=== PATIENT | male | born 1960 | race Caucasian/White ===

== ENCOUNTER → 2016-11-08 | Outpatient (CLI) | payer OTHER ==
--- NOTE | ~2016-11-08 | ENPV ---
Vascular Lower Extremities DVT Study Procedure Demographics Patient Name ETHAN CHEN Date of Study 11/08/2016 Patient Number [id number] Gender Male Date of 1960 Age 55 Visit Number [id number] Height Accession Number [id number] Weight Room Number BSA BMI Referring Jimi Sandoval MD Interpreting Nikita Knight MD Physician Nikita Knight MD Physician Physician Ordering Physician Kolton Mckeon MD Water Well Driller Jan Rodgers RVT Conclusions Summary Evidence of DVT in the left peroneal veins. No evidence of DVT proximal to calf veins. Procedure Type of Study: Veins:Lower Extremities DVT Study, Lower Extremity Left. Indications for Study:Swelling of Limb. Appropriate Use Criteria:9 Patient Status:Routine. Study Location:Vascular Lab. Technical Quality:Adequate visualization. Velocities are measured in cm/s ; Diameters are measured in cm Right Lower Extremities DVT Study Measurements Right 2D and Doppler Measurements + + + + +------+------+ + !Location !Visualized!Compressibility!Thrombosis!Signal!Reflux!Reflux ! ! ! ! ! ! ! !(sec) ! + + + + +------+------+ + !Common !Yes !Yes !None ! ! ! ! !Femoral ! ! ! ! ! ! ! + + + + +------+------+ + Left Lower Extremities DVT Study Measurements Left 2D and Doppler Measurements + + + + +------+------+ + !Location !Visualized!Compressibility!Thrombosis!Signal!Reflux!Reflux ! ! ! ! ! ! ! !(sec) ! + + + + +------+------+ + !GSV Thigh !Yes !Yes !None ! ! ! ! + + + + +------+------+ + !Common !Yes !Yes !None ! ! ! ! !Femoral ! ! ! ! ! ! ! + + + + +------+------+ + !Prox !Yes !Yes !None ! ! ! ! !Femoral ! ! ! ! ! ! ! + + + + +------+------+ + !Mid Femoral!Yes ! ! ! ! ! ! + + + + +------+------+ + !Dist !Yes !Yes !None ! ! ! ! !Femoral ! ! ! ! ! ! ! + + + + +------+------+ + !Popliteal !Yes !Yes !None ! ! ! ! + + + + +------+------+ + !PTV !Yes !Yes !None ! ! ! ! + + + + +------+------+ + !Peroneal !Yes !Partial !Acute ! ! ! ! + + + + +------+------+ + Signature dtt: BOGDAN GANNON dtd: 11/08/16 1058 Physician Self Edit
== END | disposition disaster alternative care site (69) ==
LOC: GCAR 10:29
DX: M79.662 Pain in left lower leg (principal); I82.492 Acute embolism and thrombosis of other specified deep vein of left lower extremity; M79.89 Other specified soft tissue disorders